=== PATIENT | male | born 1975 | race African-American/Black ===

== ENCOUNTER 2021-04-03 14:22 | Inpatient (IN) | payer OTHER ==
[2021-04-03 15:27] VITALS: BMI 39.6
[2021-04-03] MEDS ORDERED: ACETAMINOPHEN 325 MG TABLET (FP) PO PRN ×2 (19:01)
[2021-04-03] MEDS ORDERED: BISMUTH SUBSALICYLATE 524 MG/30 ML PO PRN (19:01)
[2021-04-03] MEDS ORDERED: MENTHOL/PHENOL 1 EACH UD MM PRN (19:01)
[2021-04-03] MEDS ORDERED: MAGNESIUM HYDROX 2400MG/30ML ORAL SUSPENSION 30 ML CUP PO PRN (19:01)
[2021-04-03] MEDS ORDERED: MAGNESIUM CITRATE 300 ML BOTTLE PO PRN (19:01)
[2021-04-03] MEDS ORDERED: MAG HYDROX/AL HYDROX/SIMETH 30 ML UNIT-DOSE CUP PO PRN (19:01)
[2021-04-03] MEDS ORDERED: NICOTINE 10 MG CARTRIDGE (INHALER) IH PRN (19:01)
[2021-04-03] MEDS ORDERED: ALBUTEROL SO4 HFA INHALER IH PRN (19:05)
[2021-04-03] MEDS: THIAMINE HCL 100 MG TABLET (FP) PO SCH (23:15)
[2021-04-03] MEDS: MONTELUKAST NA 10 MG TABLET PO SCH (23:15)
[2021-04-03] MEDS: hydrOXYzine PAMOATE 25 MG CAPSULE (FP) PO SCH (23:23)
[2021-04-03] MEDS: MELATONIN 5 MG TABLETS PO SCH (23:23)
[2021-04-04] MEDS: hydrOXYzine PAMOATE 25 MG CAPSULE (FP) PO SCH (06:44)
[2021-04-04] MEDS: metFORMIN HCL 500 MG TABLET (FP) PO SCH (06:55)
[2021-04-04] MEDS ORDERED: hydrOXYzine PAMOATE 25 MG CAPSULE (FP) PO PRN (07:26)
[2021-04-04] MEDS: FUROSEMIDE 40 MG TABLET (FP) PO SCH (10:46)
[2021-04-04] MEDS: LISINOPRIL 20 MG TABLET PO SCH (10:47)
[2021-04-04] MEDS: PRENATAL VITAMINS W/ FOLIC ACID TABLET (FP) PO SCH (10:47)
[2021-04-04 11:46] LABS: HEMATOCRIT 44.7 % (35.4-49); HEMOGLOBIN 14.5 GM/dL (11.7-16.9); MCH 27.2 pg (25.7-33.7); MCHC 32.5 g/dl (32.0-35.9); MEAN CELL VOLUME 83.7 fl (80-96); MEAN PLT VOLUME 8.6 fl (7.5-11.1); PLATELET COUNT 223 10^3/uL (134-434); RBC 5.34 M/mm3 (4.00-5.60); RDW 14.5 % (11.9-15.9); WHITE BLOOD COUNT 8.1 K/mm3 (4.0-10.0)
[2021-04-04 11:47] LABS: CALCIUM 8.2 mg/dL (8.5-10.1)
[2021-04-04 11:48] LABS: ALBUMIN 3.2 g/dl (3.4-5.0); BLOOD UREA NITROGEN 12.1 mg/dL (7-18)
[2021-04-04 11:52] LABS: BILIRUBIN,TOTAL 0.8 mg/dL (0.2-1); TOT PROT 6.8 g/dl (6.4-8.2)
[2021-04-04] MEDS ORDERED: methaDONE HCL 10 MG TABLET (FOR DETOX USE ONLY) PO ONE (12:11)
[2021-04-04] MEDS ORDERED: cloNIDine HCL 0.1 MG TABLET PO PRN (12:11)
[2021-04-04] MEDS ORDERED: diazePAM 5 MG TABLET PO PRN (12:12)
[2021-04-04] MEDS: IBUPROFEN 400 MG TABLET (FP) PO PRN (14:51)
[2021-04-04] MEDS: MONTELUKAST NA 10 MG TABLET PO SCH (22:26)
[2021-04-04] MEDS: THIAMINE HCL 100 MG TABLET (FP) PO SCH (22:26)
[2021-04-04] MEDS: MELATONIN 5 MG TABLETS PO SCH (22:26)
[2021-04-05] MEDS: metFORMIN HCL 500 MG TABLET (FP) PO SCH (06:43)
[2021-04-05] MEDS: METHOCARBAMOL 500 MG TABLET PO PRN (06:43)
[2021-04-05] MEDS ORDERED: methaDONE HCL 10 MG TABLET (FOR DETOX USE ONLY) ONE (09:28)
[2021-04-05] MEDS: FUROSEMIDE 40 MG TABLET (FP) PO SCH (10:53)
[2021-04-05] MEDS: PRENATAL VITAMINS W/ FOLIC ACID TABLET (FP) PO SCH (10:53)
[2021-04-05] MEDS: LISINOPRIL 20 MG TABLET PO SCH (10:53)
[2021-04-05] MEDS: ONDANSETRON *ODT* 4 MG TABLET SL PRN (12:51)
[2021-04-05] MEDS: MELATONIN 5 MG TABLETS PO SCH (22:43)
[2021-04-05] MEDS: THIAMINE HCL 100 MG TABLET (FP) PO SCH (22:43)
[2021-04-05] MEDS: MONTELUKAST NA 10 MG TABLET PO SCH (22:43)
[2021-04-06] MEDS: ONDANSETRON *ODT* 4 MG TABLET SL PRN (07:31)
[2021-04-06] MEDS: metFORMIN HCL 500 MG TABLET (FP) PO SCH (07:39)
[2021-04-06] MEDS ORDERED: methaDONE HCL 10 MG TABLET (FOR DETOX USE ONLY) PO ONE (10:00)
[2021-04-06] MEDS: PRENATAL VITAMINS W/ FOLIC ACID TABLET (FP) PO SCH (11:08)
[2021-04-06] MEDS: FUROSEMIDE 40 MG TABLET (FP) PO SCH (11:08)
[2021-04-06] MEDS: LISINOPRIL 20 MG TABLET PO SCH (11:08)
[2021-04-06] MEDS ORDERED: DICYCLOMINE HCL 10 MG CAPSULE PO ONE (15:26)
[2021-04-06] MEDS: MELATONIN 5 MG TABLETS PO SCH (22:33)
[2021-04-06] MEDS: THIAMINE HCL 100 MG TABLET (FP) PO SCH (22:34)
[2021-04-06] MEDS: MONTELUKAST NA 10 MG TABLET PO SCH (22:34)
[2021-04-07] MEDS: metFORMIN HCL 500 MG TABLET (FP) PO SCH (06:07)
[2021-04-07] MEDS ORDERED: methaDONE HCL 10 MG TABLET (FOR DETOX USE ONLY) ONE (08:39)
[2021-04-07] MEDS: FUROSEMIDE 40 MG TABLET (FP) PO SCH (10:09)
[2021-04-07] MEDS: PRENATAL VITAMINS W/ FOLIC ACID TABLET (FP) PO SCH (10:09)
[2021-04-07] MEDS: LISINOPRIL 20 MG TABLET PO SCH (10:09)
[2021-04-07] MEDS: IBUPROFEN 400 MG TABLET (FP) PO PRN (10:12)
[2021-04-07] MEDS ORDERED: DICYCLOMINE HCL 10 MG CAPSULE PO PRN (11:40)
[2021-04-07] MEDS: MELATONIN 5 MG TABLETS PO SCH (22:27)
[2021-04-07] MEDS: THIAMINE HCL 100 MG TABLET (FP) PO SCH (22:27)
[2021-04-07] MEDS: MONTELUKAST NA 10 MG TABLET PO SCH (22:27)
[2021-04-08] MEDS: metFORMIN HCL 500 MG TABLET (FP) PO SCH (07:51)
[2021-04-08] MEDS ORDERED: methaDONE HCL 10 MG TABLET (FOR DETOX USE ONLY) PO ONE (10:00)
[2021-04-08] MEDS: METHOCARBAMOL 500 MG TABLET PO PRN ×2 (10:24→22:06)
[2021-04-08] MEDS: LISINOPRIL 20 MG TABLET PO SCH (10:24)
[2021-04-08] MEDS: FUROSEMIDE 40 MG TABLET (FP) PO SCH (10:25)
[2021-04-08] MEDS: PRENATAL VITAMINS W/ FOLIC ACID TABLET (FP) PO SCH (10:25)
[2021-04-08] MEDS: THIAMINE HCL 100 MG TABLET (FP) PO SCH (22:06)
[2021-04-08] MEDS: MELATONIN 5 MG TABLETS PO SCH (22:06)
[2021-04-08] MEDS: MONTELUKAST NA 10 MG TABLET PO SCH (22:06)
[2021-04-09] MEDS: metFORMIN HCL 500 MG TABLET (FP) PO SCH (07:09)
[2021-04-09 09:04] VITALS: PULSE 66; TEMP 96.9
[2021-04-09] MEDS: PRENATAL VITAMINS W/ FOLIC ACID TABLET (FP) PO SCH (09:32)
[2021-04-09] MEDS: FUROSEMIDE 40 MG TABLET (FP) PO SCH (09:32)
[2021-04-09] MEDS: LISINOPRIL 20 MG TABLET PO SCH (09:32)
[2021-04-09 09:33] VITALS: BP 124/77
== END 2021-04-09 11:15 | disposition other institution (70) | DRG 773 ==
LOC: YASAS 14:22 → Y3N 19:07 → UNDOADMIN 19:07 → Y3N 19:11
PROVIDERS: ADMIT Allergy & Immunology; ATTEND Allergy & Immunology
PROC: HZ2ZZZZ Detoxification Services for Substance Abuse Treatment (ICD-10-PCS; principal; 2021-04-03)
DX: F11.23 Opioid dependence with withdrawal (principal); F12.10 Cannabis abuse, uncomplicated; F17.210 Nicotine dependence, cigarettes, uncomplicated; I83.93 Asymptomatic varicose veins of bilateral lower extremities; E11.9 Type 2 diabetes mellitus without complications; Z79.84 Long term (current) use of oral hypoglycemic drugs
CPT/HCPCS: 36415; 80053; 82962; 85027; 86780; C9803; Q0162; U0003; U0005

== ENCOUNTER 2021-04-09 11:13 | Inpatient (IN) | payer OTHER ==
[2021-04-09] MEDS ORDERED: NICOTINE 10 MG CARTRIDGE (INHALER) IH PRN (12:02)
[2021-04-09] MEDS ORDERED: LOPERAMIDE HCL 2 MG CAPSULE PO PRN (12:02)
[2021-04-09] MEDS ORDERED: hydrOXYzine PAMOATE 25 MG CAPSULE (FP) PO PRN (12:02)
[2021-04-09] MEDS ORDERED: MAGNESIUM CITRATE 300 ML BOTTLE PO PRN (12:02)
[2021-04-09] MEDS ORDERED: P-EPHED 60MG/TRIPROLIDI 2.5MG TABLET PO PRN (12:02)
[2021-04-09] MEDS ORDERED: MAG HYDROX/AL HYDROX/SIMETH 30 ML UNIT-DOSE CUP PO PRN (12:02)
[2021-04-09] MEDS ORDERED: MAGNESIUM HYDROX 2400MG/30ML ORAL SUSPENSION 30 ML CUP PO PRN (12:02)
[2021-04-09] MEDS ORDERED: MENTHOL/PHENOL 1 EACH UD MM PRN (12:02)
[2021-04-09] MEDS ORDERED: guaiFENesin 200 MG/10 ML 10 ML UNIT-DOSE CUPS PO PRN (12:02)
[2021-04-09] MEDS ORDERED: ALBUTEROL SO4 HFA INHALER IH PRN ×2 (14:53→14:56)
[2021-04-09] MEDS: IBUPROFEN 400 MG TABLET (FP) PO PRN (18:10)
[2021-04-09] MEDS: THIAMINE HCL 100 MG TABLET (FP) PO SCH (21:32)
[2021-04-09] MEDS: MELATONIN 5 MG TABLETS PO SCH (21:32)
[2021-04-09] MEDS: MONTELUKAST NA 10 MG TABLET PO SCH (21:33)
[2021-04-10] MEDS: metFORMIN HCL 500 MG TABLET (FP) PO SCH (07:53)
[2021-04-10] MEDS: FUROSEMIDE 40 MG TABLET (FP) PO SCH (09:28)
[2021-04-10] MEDS: NICOTINE 7 MG/24 HOURS TOPICAL PATCH TD SCH (09:28)
[2021-04-10] MEDS: PRENATAL VITAMINS W/ FOLIC ACID TABLET (FP) PO SCH (09:28)
[2021-04-10] MEDS: LISINOPRIL 20 MG TABLET PO SCH (09:28)
[2021-04-10] MEDS: MELATONIN 5 MG TABLETS PO SCH (21:53)
[2021-04-10] MEDS: THIAMINE HCL 100 MG TABLET (FP) PO SCH (21:53)
[2021-04-10] MEDS: MONTELUKAST NA 10 MG TABLET PO SCH (21:53)
[2021-04-11] MEDS: metFORMIN HCL 500 MG TABLET (FP) PO SCH (06:25)
[2021-04-11] MEDS: PRENATAL VITAMINS W/ FOLIC ACID TABLET (FP) PO SCH (10:22)
[2021-04-11] MEDS: FUROSEMIDE 40 MG TABLET (FP) PO SCH (10:22)
[2021-04-11] MEDS: LISINOPRIL 20 MG TABLET PO SCH (10:22)
[2021-04-11] MEDS: NICOTINE 7 MG/24 HOURS TOPICAL PATCH TD SCH (10:27)
[2021-04-11] MEDS: MELATONIN 5 MG TABLETS PO SCH (21:43)
[2021-04-11] MEDS: MONTELUKAST NA 10 MG TABLET PO SCH (21:43)
[2021-04-11] MEDS: THIAMINE HCL 100 MG TABLET (FP) PO SCH (21:43)
[2021-04-12] MEDS: metFORMIN HCL 500 MG TABLET (FP) PO SCH (06:46)
[2021-04-12] MEDS: NICOTINE 7 MG/24 HOURS TOPICAL PATCH TD SCH (09:29)
[2021-04-12] MEDS: PRENATAL VITAMINS W/ FOLIC ACID TABLET (FP) PO SCH (09:29)
[2021-04-12] MEDS: LISINOPRIL 20 MG TABLET PO SCH (09:30)
[2021-04-12] MEDS: FUROSEMIDE 40 MG TABLET (FP) PO SCH (09:30)
[2021-04-12] MEDS: IBUPROFEN 400 MG TABLET (FP) PO PRN (09:31)
[2021-04-12] MEDS: ACETAMINOPHEN 325 MG TABLET (FP) PO PRN (11:32)
[2021-04-12] MEDS: THIAMINE HCL 100 MG TABLET (FP) PO SCH (21:29)
[2021-04-12] MEDS: MONTELUKAST NA 10 MG TABLET PO SCH (21:29)
[2021-04-12] MEDS: MELATONIN 5 MG TABLETS PO SCH (21:30)
[2021-04-13] MEDS: metFORMIN HCL 500 MG TABLET (FP) PO SCH (08:20)
[2021-04-13] MEDS ORDERED: PT OWN MED DRAWER 7, Y5N ONE ×2 (09:18→10:30)
[2021-04-13] MEDS: LISINOPRIL 20 MG TABLET PO SCH (09:47)
[2021-04-13] MEDS: NICOTINE 7 MG/24 HOURS TOPICAL PATCH TD SCH (09:48)
[2021-04-13] MEDS: PRENATAL VITAMINS W/ FOLIC ACID TABLET (FP) PO SCH (09:48)
[2021-04-13] MEDS: FUROSEMIDE 40 MG TABLET (FP) PO SCH (09:48)
[2021-04-13] MEDS: MONTELUKAST NA 10 MG TABLET PO SCH (21:34)
[2021-04-13] MEDS: THIAMINE HCL 100 MG TABLET (FP) PO SCH (21:34)
[2021-04-13] MEDS: MELATONIN 5 MG TABLETS PO SCH (21:34)
[2021-04-13] MEDS: IBUPROFEN 400 MG TABLET (FP) PO PRN (22:54)
[2021-04-14] MEDS: metFORMIN HCL 500 MG TABLET (FP) PO SCH (06:45)
[2021-04-14] MEDS: PRENATAL VITAMINS W/ FOLIC ACID TABLET (FP) PO SCH (09:36)
[2021-04-14] MEDS: FUROSEMIDE 40 MG TABLET (FP) PO SCH (09:36)
[2021-04-14] MEDS: LISINOPRIL 20 MG TABLET PO SCH (09:37)
[2021-04-14] MEDS: NICOTINE 7 MG/24 HOURS TOPICAL PATCH TD SCH (09:37)
[2021-04-14] MEDS ORDERED: BUPRENORPHINE/NALOXONE 2 MG/0.5 MG FILM PACKET SL ONE (11:37)
[2021-04-14] MEDS: MELATONIN 5 MG TABLETS PO SCH (21:42)
[2021-04-14] MEDS: MONTELUKAST NA 10 MG TABLET PO SCH (21:42)
[2021-04-14] MEDS: THIAMINE HCL 100 MG TABLET (FP) PO SCH (21:42)
[2021-04-14] MEDS: IBUPROFEN 400 MG TABLET (FP) PO PRN (21:44)
[2021-04-15] MEDS: metFORMIN HCL 500 MG TABLET (FP) PO SCH (06:40)
[2021-04-15] MEDS: PRENATAL VITAMINS W/ FOLIC ACID TABLET (FP) PO SCH (09:23)
[2021-04-15] MEDS: LISINOPRIL 20 MG TABLET PO SCH (09:23)
[2021-04-15] MEDS: FUROSEMIDE 40 MG TABLET (FP) PO SCH (09:23)
[2021-04-15] MEDS: NICOTINE 7 MG/24 HOURS TOPICAL PATCH TD SCH (09:23)
[2021-04-15] MEDS ORDERED: BUPRENORPHINE/NALOXONE 4 MG/1 MG FILM PACKET SL ONE (12:15)
[2021-04-15] MEDS: MELATONIN 5 MG TABLETS PO SCH (21:23)
[2021-04-15] MEDS: THIAMINE HCL 100 MG TABLET (FP) PO SCH (21:23)
[2021-04-15] MEDS: MONTELUKAST NA 10 MG TABLET PO SCH (21:23)
[2021-04-15] MEDS: BUPRENORPHINE/NALOXONE 4 MG/1 MG FILM PACKET SL SCH (21:24)
[2021-04-15] MEDS: IBUPROFEN 400 MG TABLET (FP) PO PRN (21:25)
[2021-04-16] MEDS: metFORMIN HCL 500 MG TABLET (FP) PO SCH (06:50)
[2021-04-16] MEDS: ACETAMINOPHEN 325 MG TABLET (FP) PO PRN (06:51)
[2021-04-16] MEDS: NICOTINE 7 MG/24 HOURS TOPICAL PATCH TD SCH (09:21)
[2021-04-16] MEDS: BUPRENORPHINE/NALOXONE 4 MG/1 MG FILM PACKET SL SCH ×2 (09:21→21:26)
[2021-04-16] MEDS: FUROSEMIDE 40 MG TABLET (FP) PO SCH (09:21)
[2021-04-16] MEDS: LISINOPRIL 20 MG TABLET PO SCH (09:21)
[2021-04-16] MEDS: PRENATAL VITAMINS W/ FOLIC ACID TABLET (FP) PO SCH (09:21)
[2021-04-16] MEDS: IBUPROFEN 400 MG TABLET (FP) PO PRN (19:49)
[2021-04-16] MEDS: MELATONIN 5 MG TABLETS PO SCH (21:22)
[2021-04-16] MEDS: MONTELUKAST NA 10 MG TABLET PO SCH (21:22)
[2021-04-16] MEDS: THIAMINE HCL 100 MG TABLET (FP) PO SCH (21:22)
[2021-04-17] MEDS: IBUPROFEN 400 MG TABLET (FP) PO PRN (06:43)
[2021-04-17] MEDS: metFORMIN HCL 500 MG TABLET (FP) PO SCH (07:14)
[2021-04-17] MEDS: FUROSEMIDE 40 MG TABLET (FP) PO SCH (09:21)
[2021-04-17] MEDS: BUPRENORPHINE/NALOXONE 4 MG/1 MG FILM PACKET SL SCH ×2 (09:22→21:39)
[2021-04-17] MEDS: NICOTINE 7 MG/24 HOURS TOPICAL PATCH TD SCH (09:22)
[2021-04-17] MEDS: PRENATAL VITAMINS W/ FOLIC ACID TABLET (FP) PO SCH (09:22)
[2021-04-17] MEDS: LISINOPRIL 20 MG TABLET PO SCH (09:22)
[2021-04-17] MEDS ORDERED: PT OWN MED DRAWER 7, Y5N ONE (15:04)
[2021-04-17] MEDS: LIDOCAINE 5% TOPICAL PATCH TP SCH (15:05)
[2021-04-17] MEDS: LIDOCAINE PATCH REMOVAL MC SCH (21:37)
[2021-04-17] MEDS: MONTELUKAST NA 10 MG TABLET PO SCH (21:39)
[2021-04-17] MEDS: THIAMINE HCL 100 MG TABLET (FP) PO SCH (21:39)
[2021-04-17] MEDS: MELATONIN 5 MG TABLETS PO SCH (22:40)
[2021-04-18] MEDS: metFORMIN HCL 500 MG TABLET (FP) PO SCH (06:32)
[2021-04-18] MEDS: LISINOPRIL 20 MG TABLET PO SCH (10:00)
[2021-04-18] MEDS: FUROSEMIDE 40 MG TABLET (FP) PO SCH (10:00)
[2021-04-18] MEDS: BUPRENORPHINE/NALOXONE 4 MG/1 MG FILM PACKET SL SCH ×2 (10:00→21:09)
[2021-04-18] MEDS: LIDOCAINE 5% TOPICAL PATCH TP SCH (10:00)
[2021-04-18] MEDS: PRENATAL VITAMINS W/ FOLIC ACID TABLET (FP) PO SCH (10:00)
[2021-04-18] MEDS: NICOTINE 7 MG/24 HOURS TOPICAL PATCH TD SCH (10:01)
[2021-04-18] MEDS: LIDOCAINE PATCH REMOVAL MC SCH (21:05)
[2021-04-18] MEDS: IBUPROFEN 400 MG TABLET (FP) PO PRN (21:07)
[2021-04-18] MEDS: MONTELUKAST NA 10 MG TABLET PO SCH (21:09)
[2021-04-18] MEDS: THIAMINE HCL 100 MG TABLET (FP) PO SCH (21:09)
[2021-04-18] MEDS: MELATONIN 5 MG TABLETS PO SCH (23:11)
[2021-04-19] MEDS: metFORMIN HCL 500 MG TABLET (FP) PO SCH (06:50)
[2021-04-19] MEDS: FUROSEMIDE 40 MG TABLET (FP) PO SCH (09:10)
[2021-04-19] MEDS: LIDOCAINE 5% TOPICAL PATCH TP SCH (09:11)
[2021-04-19] MEDS: LISINOPRIL 20 MG TABLET PO SCH (09:11)
[2021-04-19] MEDS: NICOTINE 7 MG/24 HOURS TOPICAL PATCH TD SCH (09:11)
[2021-04-19] MEDS: PRENATAL VITAMINS W/ FOLIC ACID TABLET (FP) PO SCH (09:11)
[2021-04-19] MEDS: BUPRENORPHINE/NALOXONE 4 MG/1 MG FILM PACKET SL SCH ×2 (09:11→21:26)
[2021-04-19] MEDS: MELATONIN 5 MG TABLETS PO SCH (21:25)
[2021-04-19] MEDS: LIDOCAINE PATCH REMOVAL MC SCH (21:25)
[2021-04-19] MEDS: THIAMINE HCL 100 MG TABLET (FP) PO SCH (21:26)
[2021-04-19] MEDS: MONTELUKAST NA 10 MG TABLET PO SCH (21:26)
[2021-04-20] MEDS: metFORMIN HCL 500 MG TABLET (FP) PO SCH (06:33)
[2021-04-20] MEDS: LISINOPRIL 20 MG TABLET PO SCH (09:32)
[2021-04-20] MEDS: FUROSEMIDE 40 MG TABLET (FP) PO SCH (09:32)
[2021-04-20] MEDS: PRENATAL VITAMINS W/ FOLIC ACID TABLET (FP) PO SCH (09:32)
[2021-04-20] MEDS: NICOTINE 7 MG/24 HOURS TOPICAL PATCH TD SCH (09:33)
[2021-04-20] MEDS: BUPRENORPHINE/NALOXONE 4 MG/1 MG FILM PACKET SL SCH ×2 (09:33→21:40)
[2021-04-20] MEDS: LIDOCAINE 5% TOPICAL PATCH TP SCH (09:35)
[2021-04-20] MEDS: IBUPROFEN 400 MG TABLET (FP) PO PRN (16:49)
[2021-04-20] MEDS: THIAMINE HCL 100 MG TABLET (FP) PO SCH (21:39)
[2021-04-20] MEDS: MONTELUKAST NA 10 MG TABLET PO SCH (21:39)
[2021-04-20] MEDS: LIDOCAINE PATCH REMOVAL MC SCH (21:40)
[2021-04-20] MEDS: MELATONIN 5 MG TABLETS PO SCH (21:40)
[2021-04-21 07:16] VITALS: TEMP 96.3
[2021-04-21] MEDS: metFORMIN HCL 500 MG TABLET (FP) PO SCH (07:27)
[2021-04-21 09:08] VITALS: BP 108/71; PULSE 82
[2021-04-21] MEDS: PRENATAL VITAMINS W/ FOLIC ACID TABLET (FP) PO SCH (09:15)
[2021-04-21] MEDS: FUROSEMIDE 40 MG TABLET (FP) PO SCH (09:15)
[2021-04-21] MEDS: LISINOPRIL 20 MG TABLET PO SCH (09:15)
[2021-04-21] MEDS: LIDOCAINE 5% TOPICAL PATCH TP SCH (09:16)
[2021-04-21] MEDS: BUPRENORPHINE/NALOXONE 4 MG/1 MG FILM PACKET SL SCH (09:16)
[2021-04-21] MEDS: NICOTINE 7 MG/24 HOURS TOPICAL PATCH TD SCH (09:16)
== END 2021-04-21 09:37 | disposition home or self-care (01) | DRG 772 ==
LOC: YASAS 11:13 → Y3E 11:15
PROVIDERS: ADMIT Allergy & Immunology; ATTEND Allergy & Immunology
PROC: HZ42ZZZ Group Counseling for Substance Abuse Treatment, Cognitive-Behavioral (ICD-10-PCS; principal; 2021-04-09)
DX: F11.20 Opioid dependence, uncomplicated (principal); F12.20 Cannabis dependence, uncomplicated; I10 Essential (primary) hypertension; I83.93 Asymptomatic varicose veins of bilateral lower extremities; J45.909 Unspecified asthma, uncomplicated; E11.9 Type 2 diabetes mellitus without complications; M54.5 Low back pain; Z79.84 Long term (current) use of oral hypoglycemic drugs; Z51.81 Encounter for therapeutic drug level monitoring
CPT/HCPCS: 82962